=== PATIENT | male | born 1945 | race Caucasian/White ===

== ENCOUNTER 2017-07-31 07:29 | Day surgery (SDC) | payer MEDICARE, BC ==
[2017-07-31] MEDS ORDERED: Propofol 200 MG/20 ML SDV ONE (07:54)
[2017-07-31] MEDS ORDERED: fentaNYL 100 MCG/2 ML SDV ONE (07:55)
[2017-07-31] MEDS ORDERED: Midazolam 1 MG/ML 2 ML SDV ONE (07:55)
[2017-07-31] MEDS ORDERED: Lactated Ringers 1,000 ML IV SCH (08:00)
[2017-07-31 10:21] VITALS: BP 116/73
--- NOTE | 2017-07-31 13:56 | OR ---
DATE OF PROCEDURE: 07/31/2017 PREOPERATIVE DIAGNOSIS: History of colon polyps. POSTOPERATIVE DIAGNOSIS: Multiple colon polyps, small. Diverticulosis. History of colon polyps. PROCEDURES: Colonoscopy to the cecum with biopsy resection of colon polyps 40 cm from the anal verge, two in the proximal right colon, one in the distal right colon, and two in the proximal transverse colon. SURGEON: Rafael Gamez MD ANESTHESIA: IV anesthesia with monitored anesthesia care. INDICATION: This 72-year-old white male is admitted for a colonoscopy because of a history of colon polyps. His last colonoscopic exam was done three years ago. I counseled him for the procedure, including risks and alternatives, and he gave his informed consent to proceed. DESCRIPTION OF PROCEDURE: The patient was placed in the left lateral decubitus position. IV anesthesia was administered by the Anesthesia Service. Time-out was held. A rectal exam was performed, which was unremarkable. The flexible video Olympus colonoscope was introduced through his anus, up his rectum, and out his colon all the way to the cecum. En route, at 40 cm from the anal verge, we saw a small polyp, which was removed with the biopsy forceps. We also saw a few scattered left sided diverticulosis. There was no bleeding nor inflammation associated with any of them. Once the cecum was reached, the scope was slowly withdrawn, examining the mucosa throughout. We saw two additional small polyps in the proximal right colon, which were removed with the biopsy forceps. The scope was brought back further, where another small polyp in the distal right colon was seen and was removed with the biopsy forceps. The scope was withdrawn further and in the proximal transverse colon, two more small polyps were seen, which were removed with the biopsy forceps. The scope was withdrawn further to the rectum with no other new lesions noted. The scope was retroflexed in the rectum with the distal rectum appearing unremarkable. The scope was straightened and removed. He tolerated the procedure well. Rafael Gamez MD /[id number] MTDD
== END 2017-07-31 10:30 | disposition home or self-care (01) ==
LOC: JP.SDS 07:29
PROVIDERS: ATTEND Surgery
DX: Z12.11 Encounter for screening for malignant neoplasm of colon (principal); D12.3 Benign neoplasm of transverse colon; D12.4 Benign neoplasm of descending colon; D12.2 Benign neoplasm of ascending colon; D12.6 Benign neoplasm of colon, unspecified; K57.30 Diverticulosis of large intestine without perforation or abscess without bleeding; Z86.010 Personal history of colon polyps
CPT/HCPCS: 88305; J2250; J2704; J3010; J7120

== ENCOUNTER 2020-08-14 06:17 | Day surgery (SDC) | payer BC, MEDICARE ==
[2020-08-14] MEDS ORDERED: Sodium Chloride 0.9% 1,000 ML IV SCH (07:30)
[2020-08-14] MEDS ORDERED: Midazolam 1 MG/ML 2 ML SDV ONE (08:36)
[2020-08-14] MEDS ORDERED: fentaNYL 100 MCG/2 ML SDV ONE (08:36)
[2020-08-14] MEDS ORDERED: Propofol 200 MG/20 ML SDV ONE (08:36)
[2020-08-14 10:07] VITALS: BP 125/72; PULSE 65
--- NOTE | 2020-08-14 13:42 | OR ---
DATE OF PROCEDURE: 08/14/2020 SURGEON: Sean Valera MD PROCEDURE: Colonoscopy. FINDINGS: 1. Mild inflammation of the ileocecal valve, concerning for ileitis (biopsied using cold biopsy forceps). 2. Ascending colon polyp, approximately 5 mm, completely removed using hot snare wire device. 3. Sigmoid colon polyp, approximately 5 mm, completely removed using cold biopsy forceps. COMPLICATIONS: None. FUNERAL GREETER: None. ANESTHESIA: MAC. PREOPERATIVE DIAGNOSIS: Screening colonoscopy. POSTOPERATIVE DIAGNOSIS: Screening colonoscopy. RISKS: Risks, benefits, alternatives, and limitations including, but not limited to infection, bleeding, perforation, false positives and false negatives were explained to the patient who wished to proceed. PROCEDURE IN DETAIL: The patient was placed in left lateral decubitus position. Digital rectal exam was performed without abnormality. Scope was introduced and advanced atraumatically to the ileocecal valve. A photo was taken of this. The ileocecal valve itself showed inflammation. No petechiae, bleeding, or abnormality. This was biopsied using cold biopsy forceps. On cannulating the valve, this was on the distal aspect only. The aforementioned polyps were identified and completely removed. The scope was brought back to the remainder of the colon without any other abnormality. No abnormalities on retroflexion. No old or new blood. No colitis. No abnormalities on retroflexion. Greater than 8 minutes was spent removing the scope. The prep was acceptable with approximately 95% of the luminal surface could be seen. The patient tolerated the procedure well. Sean Valera MD /[id number]
== END 2020-08-14 10:09 | disposition home or self-care (01) ==
LOC: JP.SDS 06:17
PROVIDERS: ATTEND Surgery
DX: Z12.11 Encounter for screening for malignant neoplasm of colon (principal); D12.2 Benign neoplasm of ascending colon; K52.9 Noninfective gastroenteritis and colitis, unspecified; Z86.010 Personal history of colon polyps
CPT/HCPCS: J2250; J2704; J3010; J7030

== ENCOUNTER 2024-10-18 07:26 | Day surgery (SDC) | payer MEDICARE ==
[~2024-10-18 07:26] MED LIST: Propofol 200 MG/20 ML SDV ONE; fentaNYL 100 MCG/2 ML SDV ONE
[2024-10-18] MEDS: Lactated Ringers 1,000 ML IV SCH (08:18)
[2024-10-18 10:42] VITALS: BP 143/68; PULSE 50
== END 2024-10-18 10:57 | disposition home or self-care (01) ==
LOC: JP.SDS 07:26
PROVIDERS: ATTEND Family Medicine
DX: D12.3 Benign neoplasm of transverse colon (principal); D12.4 Benign neoplasm of descending colon; R63.4 Abnormal weight loss; Z88.1 Allergy status to other antibiotic agents; Z86.0101 Personal history of adenomatous and serrated colon polyps
CPT/HCPCS: 00811; 45380; 45385; J2704; J3010; J7120